=== PATIENT | female | born 1985 | race Caucasian/White ===

== ENCOUNTER 2021-01-29 12:27 | Emergency (ER) | payer MEDICAID, SELFPAY ==
--- NOTE | ~2021-01-29 | CT_ITS ---
EXAMINATION: CT ORBIT WITHOUT CONTRAST CLINICAL INFORMATION: Question left orbital cellulitis. COMPARISON: None TECHNIQUE: Multidetector helical imaging acquired in the axial plane with generation of reformatted acquisitions. This CT examination was performed using dose optimization techniques as appropriate, variously including the following: *Automated exposure control *Adjustment of mA and/or kV according to patient size (this includes techniques or standardized protocols for targeted exams where dose is matched to indication/reason for exam; i.e. extremities or head) *Use of iterative reconstruction technique DLP: 173 mGy-cm FINDINGS: There is moderate soft tissue thickening across the supraorbital frontal scalp and paranasal region and also visible in the left preseptal periorbital soft tissues. Mild soft tissue thickening and subcutaneous inflammatory changes noted in the premaxillary subcutaneous fat bilaterally. No obvious drainable fluid collection is evident on this limited noncontrast exam. No postseptal soft tissue inflammatory changes are visible. There is no proptosis. The globes, extraocular muscles, and optic nerve sheath complexes appear normal. The lacrimal glands are grossly normal in appearance bilaterally. No bony erosive changes are seen. Moderate sigmoidal-shaped nasal septal deviation noted. There are nasal bone fractures which are age-indeterminate. There is thickening of the right tympanic membrane which is abnormally retracted. The scutum is eroded. There is soft tissue thickening along the roof and nugent of the right external auditory canal. A rounded soft tissue lesion is visible within the attic of the right middle ear cavity extending posteriorly into the aditus ad antrum, measuring 9 mm AP and 5 mm TV. The incus is not visualized and is eroded. There is also significant thinning of the bony tegmen superiorly. CT/CT orbit BI wo con IMPRESSION: Soft tissue thickening across the supraorbital frontal scalp soft tissues, involving the paranasal soft tissues, the premaxillary subcutaneous fat bilaterally, and preseptal periorbital soft tissues on the left side, consistent with cellulitis. No postseptal soft tissue inflammatory changes in the orbits. No visible drainable fluid collection on this limited noncontrast study. Imaging findings most indicative for an atticoantral cholesteatoma on the right side with soft tissue thickening along the nugent of the right external auditory canal and retraction of the tympanic membrane. Areas of erosion involving the ossicular chain and scutum. Recommend ENT followup evaluation to guide further management. Imaging findings reported to MAXINE Casper at 3:25 PM on 01/29/2021.
[2021-01-29 12:47] VITALS: BP 136/70; PULSE 59; RESP 18; TEMP 37.1; O2SAT 97; BMI 21.7
[2021-01-29] MEDS: Acetaminophen 325 MG TABLET 650 MG PO (14:00)
--- NOTE | 2021-01-29 14:12 | ED_ITS ---
HPI - General Adult General Chief complaint: Eye Problems Stated complaint: Eye Problem Time Seen by Provider: 01/29/21 13:31 Source: patient Mode of arrival: ambulatory Limitations: no limitations History of Present Illness HPI narrative: Patient presents to ED for eye issue. Patient presents to the ED pimple and bridge of nose from between eyes and she pot, but now has mild drainage. States now that left upper eyelid and left lower eyelid are swollen and tenderness. Patient denies any eye globe pain. Patient denies any eye pain on movement. Patient denies any recent trauma to the eye. Related Data Previous Rx's Medication Instructions Recorded cephalexin 500 mg PO QID #28 cap 01/29/21 clindamycin HCl 300 mg PO TID #30 cap 01/29/21 Allergies Allergy/AdvReac Type Severity Reaction Status Date / Time dichloralphenazone Allergy Severe THROAT Unverified 06/27/20 15:48 [From MIDRIN] SWELLING NSAIDS (Non-Steroidal Allergy Severe TONGUE AND Unverified 06/27/20 15:48 Anti-Inflamma THROAT [NSAIDS (NON-STEROIDAL SWELLING ANTI-INFLAMMA] ibuprofen [IBUPROFEN] Allergy Intermediate RASH, Unverified 06/27/20 15:48 anaphylaxis amoxicillin [AMOXICILLIN] Allergy Unknown rash Unverified 06/27/20 15:48 From MIDRIN Allergy Severe THROAT Uncoded 06/27/20 15:48 SWELLING ANTI-INFLAMMATORY MEDS Allergy Unknown UNKNOWN Uncoded 06/27/20 15:48 Midrin Allergy Unknown anaphylaxis Uncoded 09/29/13 00:00 Review of Systems Review of Systems: Yes all other systems are reviewed and are negative Constitutional: Constitutional: Reports as per HPI and Reports no additional constitutional complaints Eyes: Eyes: Reports as per HPI and Reports no additional eye complaints Comments: Left upper and lower eyelid redness and swelling. ENT: Reports system reviewed and no additional complaints, except as documented and Reports as per HPI Cardiovascular: Cardiovascular: Reports as per HPI and Reports no additional cardiovascular complaints Respiratory: Respiratory: Reports as per HPI and Reports no additional respiratory complaints Gastrointestinal: Gastrointestinal: Reports as per HPI and Reports no additional gastrointestinal complaints Genitourinary: Genitourinary: Reports no additional female genitourinary complaints and Reports as per HPI Musculoskeletal: Musculoskeletal: Reports no additional musculoskeletal complaints and Reports as per HPI Neurologic: Reports system reviewed and no additional complaints, except as documented and Reports as per HPI Psychiatric: Psychiatric: Reports no additional psychiatric complaints and Reports as per HPI [facility] Past Medical History Medical History (Updated 01/29/21 @ 16:16 by MAXINE Ross) Asthma Bipolar 1 disorder Surgical History (Updated 01/29/21 @ 12:50 by Herminia Humphreys RN) History of tonsillectomy Social History Social History Advance Directives: Yes Advance Directives Information Provided: Yes Advance Directives on File: No Physical Exam Vital Signs: Vital Signs: Last Vital Signs Temp 98.7 F 01/29/21 12:47 Pulse 49 L 01/29/21 15:45 Resp 16 01/29/21 16:00 BP 140/69 H 01/29/21 15:45 Pulse Ox 98 01/29/21 15:45 Body Mass Index 21.7 Const: General: cooperative, healthy appearing, comfortable, no acute distress, well developed, alert and awake Orientation/consciousness: patient oriented x3 HENMT: Head: Yes normal to inspection, Yes No palpable skull fracture present, Yes normocephalic and Yes atraumatic Eyes: Other: Patient has complete range of motion of left eye muscles. Patient able to move her eyes and follow my finger of the left eye without having any pain. Physical exam does not indicate external ocular muscle entrapment. Negative for photophobia. Neck: Neck: Yes normal visual inspection, Yes full ROM, Yes no lymphadenopathy, Yes no meningeal signs, Yes trachea midline, Yes supple and No tender Chest: Chest palpation & inspection: normal inspection of the chest and normal palpation of entire chest wall Resp: Effort & Inspection: normal respiratory effort and able to speak in c omplete sentences Auscultation: clear to auscultation bilaterally Cardio: Jugular venous distension: no JVD Heart sounds: S1 normal heart sound present and S2 normal heart sound present GI: Inspection: Yes normal to inspection and No abdominal wall ecchymosis Palpation (GI): Soft to palpation, not firm, nontender, no guarding and not rigid : General: No CVA tenderness and Yes no CVA tenderness Back/Spine/Pelvis: Back: no CVA tenderness, No CVA tenderness and No back tenderness Skin: General skin exam: no rashes or lesions noted and elasticity normal Neuro: General: patient oriented x3 and no meningeal signs Cranial nerves: Yes CN's II-XII intact bilaterally Extrem: General: Yes normal to inspection and Yes full ROM Psych: Appearance: grossly normal, well kempt and not disheveled Course Course Course Narrative: History physical exam indicate preseptal cellulitis. Negative for any signs of ocular muscle entrapment. Patient discussed with , and he recommended CT scan of orbit without IV contrast to evaluate for orbital cellulitis due to history of IV drug abuse. Reevaluation(s) Reevaluation #1: Order CT scan negative for of the cellulitis, but shows ch olesteatoma. Patient was informed of cholesteatoma and told to follow-up with ENT. Patient informed that if facial cellulitis worsen she should come to the ED immediately. Patient prescribed antibiotics. Patient informed to return to ED in 2 days for re-evaluation. Medical Decision Making MDM Narrative Medical decision making narrative: preseptal cellulitis, Cholesteatoma Discharge Plan Discharge Clinical Impression: Periorbital cellulitis, Cholesteatoma of attic, right ear Patient Disposition: Home, Self-Care Instructions: Ear Infection (ED), Periorbital Cellulitis in Adults (ED) Additional Instructions: Return to the ED immediately for worsening swelling of eyelids, development of eye pain, inability to move the eye muscles, fever, chills, worsening ear pain, drainage from the ear, headache, dizziness, or any other concerning symptoms. Prescriptions: New clindamycin HCl 300 mg capsule 300 mg PO TID Qty: 30 RF: 0 cephalexin 500 mg capsule 500 mg PO QID Qty: 28 RF: 0 Referrals: Papa Anderson [Physician] - 2 days (Right Atticoantral choesteatoma as per ear ct scan) Interventions: ED Discharge Assessment Last Done: 01/29/21 16:27 Discharge Date/Time: 01/29/21 16:30 Print Language: Urdu
--- NOTE | 2021-01-29 14:16 | PC.NURSE ---
medicated for pain and w antibiotic, aware of care plan,
[2021-01-29 15:45] VITALS: BP 140/69; PULSE 49; RESP 16; O2SAT 98
[2021-01-29 16:00] VITALS: RESP 16
== END 2021-01-29 16:30 | disposition home or self-care (01) ==
PROVIDERS: Emergency Provider Emergency Medicine; PCP Pediatrics
DX: L03.213 Periorbital cellulitis (principal); H71.93 Unspecified cholesteatoma, bilateral; Z79.899 Other long term (current) drug therapy
CPT/HCPCS: 70480; 99284

== ENCOUNTER 2023-11-22 09:02 | Outpatient (REF) | payer MEDICAID, SELFPAY ==
[2023-11-22 11:31] LABS: MANUAL DIFF FLAG NO
[2023-11-22 12:23] LABS: Basophils Absolute Auto 0.1 X10*3/uL (0.0-0.2); Basophils Percent Auto 0.7 % (0-2); Eosinophils Absolute Auto 0.2 X10*3/uL (0.0-0.4); Eosinophils Percent Auto 2.3 % (0-4); Hematocrit 37.4 % (37.0-47.0); Hemoglobin 12.1 g/dl (12.0-16.0); Imm Gran Abs Auto 0.01 X10*3/uL (0.00-0.03); Imm Gran Pct Auto 0.1 % (0.0-0.4); Lymphocytes Absolute Auto 2.1 X10*3/uL (1.2-4.9); Lymphocytes Percent Auto 29.7 % (20-40); Mean Corpuscular HGB Conc 32.4 g/dl (31.0-35.0); Mean Corpuscular Hemoglobin 29.7 pg (27.0-33.0); Mean Corpuscular Volume 91.7 fL (80.0-98.0); Mean Platelet Volume 11.5 fL (9.4-12.3); Monocytes Absolute Auto 0.5 X10*3/uL (0.1-1.2); Monocytes Percent Auto 7.6 % (2-11); Neutrophils Absolute Auto 4.2 x10*3/uL (2.0-8.3); Neutrophils Percent Auto 59.6 % (45-73); Platelet Count 231 X10*3/uL (160-400); Red Blood Count 4.08 X10*6/uL (4.20-5.50); Red Cell Distribution Width 14.8 % (11.0-16.0)
[2023-11-22 12:49] LABS: Alanine Aminotransferase 57 U/L (0-31); Albumin Level 3.9 g/dL (3.5-5.0); Alkaline Phosphatase 90 U/L (39-117); Anion Gap 14 (12-20); Aspartate Amino Transferase 48 U/L (5-31); Bilirubin Direct 0.3 mg/dL (0.0-0.5); Bilirubin Total 0.6 mg/dL (0.0-1.0); Blood Urea Nitrogen 18 mg/dL (9-16); Calcium 9.2 mg/dL (8.4-10.2); Carbon Dioxide 25 mmol/L (22-29); Chloride 107 mmol/L (96-108); Estimated Glomerular Filt Rate > 60; Glucose Random 84 mg/dL (60-115); Sodium 142 mmol/L (135-145); TSH reflex Free T4 1.44 uIU/mL (0.32-4.0); Total Protein 7.2 g/dL (6.5-8.0); Vitamin D 25-OH Total 16.1 ng/mL (>30)
== END 2023-11-22 09:03 | disposition home or self-care (01) ==
LOC: HO.HHCL 09:02
PROVIDERS: Visit Provider Pediatrics
DX: F31.62 Bipolar disorder, current episode mixed, moderate (principal); R35.89 Other polyuria
CPT/HCPCS: 36415; 80048; 80076; 82306; 84443; 85025

== ENCOUNTER 2025-05-11 14:12 | Outpatient (REF) | payer MEDICAID, SELFPAY ==
--- OUTSIDE RECORDS SUMMARY | 2025-05-11 14:16 | XMS_ITS | Clinical Summary ---
Author Organization [facility] ity Address [address] [place] [address] Care Team Providers Care Make Up Man Name Role Phone Unavailable Primary Care Provider Unavailabl e Social History Tobacco Use Types Packs/Day Years Used Date Smoking Tobacco: Never Assessed Comments Unknown Sex and Gender Information Value Date Recorded Sex Assigned at Not on file Legal Sex Female 1:55 PM EST Gender Identity Not on file Sexual Orientation Not on file Plan of Treatment Health Maintenance Due Date Last Done Comments DTaP,Tdap,and Td Vaccines (1 - Tdap) 2005 Hepatitis B Vaccines (1 of 3 - 19+ 3-dose series) 2005 Cervical Cancer Screening: P ap Smear 12/14/2007 COVID-19 Vaccine ( - 2023-2 5 season) 2024 Depression Screening 10/11/2024 Influenza Vaccine (#1) 2025 HIB Vaccines Aged Out No longer eligi ble based on patient's age to complete this topic HPV Vaccines Aged Out No longer eligi ble based on patient's age to complete this topic Hepatitis A Vaccines Aged Out No long er eligible based on patient's age to complete this topic IPV Vaccines Aged Out No longer eligi ble based on patient's age to complete this topic MMR Vaccines Aged Out No longer eligi ble based on patient's age to complete this topic Meningococcal ACWY Vaccine Aged Out N o longer eligible based on patient's age to complete this topic Meningococcal B Vaccine Aged Out No l onger eligible based on patient's age to complete this topic Pneumococcal Vaccine: Pediat rics (0 to 5 Years) and At-Risk Patients (6 to 49 Years) Aged Out No longer eligible b ased on patient's age to complete this topic RSV Immunization Patients Un jonny 20 months Aged Out No longer eligible b ased on patient's age to complete this topic Varicella Vaccines Aged Out No longer eligible based on patient's age to complete this topic
--- OUTSIDE RECORDS SUMMARY | 2025-05-11 14:16 | XMS_ITS | Encounter Summary ---
Author Organization [facility] [facility] Address [address] [place] [address] Care Team Providers Care Radio Maintainer Name Role Phone Funmilayo Long MD Primary Care Provider [phone] Encounter Details Date Type Department Care Team (Late Contact Info) Description 02/23/2023 Abstract [facility] [address] [place] [address] Funmilayo Long MD [address], [place] [id number] Social History Tobacco Use Types Packs/Day Years Used Date Smoking Tobacco: Never Assessed Comments Unknown Sex and Gender Information Value Date Recorded Sex Assigned at Female 08/10/2022 10:15 AM EDT Legal Sex Female 10:15 AM EDT Gender Identity Female 08/10/2022 10:15 AM EDT Sexual Orientation Straight 08/10/2022 10 :15 AM EDT documented as of this encounter Plan of Treatment Upcoming Encounters Date Type Department Care Team (Late Contact Info) Description 05/31/2025 9:30 AM EDT Procedure Visit [facility] [address] [place] [address] Maricarmen Bustillos CNM [address] [place] [address] documented as of this encounter Visit Diagnoses Not on filedocumented in this encounter Care Teams Radio Maintainer Relationship Specialty Start Date End Date Funmilayo Long MD [address] [place] [address] PCP - General Family Medicine 10/11/18 documented as of this encounter
[2025-05-12 03:33] LABS: Syphilis Screen Nonreactive (Nonreactive)
[2025-05-12 03:40] LABS: HIV Num 1 0.07 S/CO (0.00-0.99); ~HepC Num1 14.52 S/CO (0.00-0.79); ~Hepatitis C Antibody Reactive (Nonreactive)
[2025-05-12 04:56] LABS: CT PCR NOT DETECTED (Not Detect.); NG PCR NOT DETECTED (Not Detect.)
[2025-05-15 15:38] LABS: HCV Log PCR 6.82 Log IU/mL (NOT DETECTED); HepC Viral Load 6560000 IU/mL (NOT DETECTED)
== END 2025-05-11 14:13 | disposition home or self-care (01) ==
LOC: HO.HHCL 14:12
PROVIDERS: PCP Pediatrics; Visit Provider Nurse Practitioner
DX: Z11.3 Encounter for screening for infections with a predominantly sexual mode of transmission (principal); Z11.4 Encounter for screening for human immunodeficiency virus [HIV]; Z11.59 Encounter for screening for other viral diseases
CPT/HCPCS: 36415; 86780; 86803; 87389; 87491; 87522; 87591

== ENCOUNTER 2025-05-18 09:44 | Outpatient (REF) | payer MEDICAID, SELFPAY ==
--- OUTSIDE RECORDS SUMMARY | 2025-05-18 09:47 | XMS_ITS | Clinical Summary ---
Author Organization [facility] ity Address [address] [place] [address] Care Team Providers Care Office Director Name Role Phone Unavailable Primary Care Provider [...]
--- OUTSIDE RECORDS SUMMARY | 2025-05-18 09:47 | XMS_ITS | Encounter Summary ---
Author Organization [employer] [facility] Address [address] [place] [address] Care Team Providers Care Tag Press Operator Name Role Phone Funmilayo Long MD Primary Care Provider [phone] Encounter Details Date Type Department Care Team (Late Contact Info) Description 02/23/2023 Abstract [facility] [address] [place] [address] Funmilayo Long MD [address] [place], [place] [phone] Social History Tobacco Use Types Packs/Day Years [...] Description 05/31/2025 9:30 AM EDT Procedure Visit [facility] [address] [place] [address] Maricarmen Bustillos CNM [address] [place] [address] documented as of this encounter Visit Diagnoses Not on filedocumented in this encounter Care Teams Tag Press Operator Relationship Specialty Start Date End Date Funmilayo Long MD [address] [place] [address] PCP - General Family Medicine 10/11/18 documented as of this encounter
[2025-05-18 11:43] LABS: MANUAL DIFF FLAG NO
[2025-05-18 11:52] LABS: Hematocrit 40.1 % (37.0-47.0); Hemoglobin 13.3 g/dl (12.0-16.0); Imm Gran Abs Auto 0.02 X10*3/uL (0.00-0.03); Imm Gran Pct Auto 0.3 % (0.0-0.4); Lymphocytes Absolute Auto 2.0 X10*3/uL (1.2-4.9); Mean Corpuscular HGB Conc 33.2 g/dl (31.0-35.0); Mean Corpuscular Hemoglobin 30.2 pg (27.0-33.0); Mean Corpuscular Volume 91.1 fL (80.0-98.0); NRBC Abs Auto 0.000 X10*3/uL (0.0-0.012); NRBC Pct Auto 0.0 /100WBC (0.0-0.2); Platelet Count 259 X10*3/uL (160-400); Red Blood Count 4.40 X10*6/uL (4.20-5.50); White Blood Count 7.9 X10*3/uL (4.8-10.8)
[2025-05-18 11:53] LABS: INTERNATIONAL NORM RATIO 1.0 (0.9-1.1); Prothrombin Time 11.3 SEC (10.9-12.4)
[2025-05-18 12:01] LABS: Alanine Aminotransferase 91 U/L (0-31); Albumin Level 4.3 g/dL (3.5-5.0); Alkaline Phosphatase 104 U/L (39-117); Aspartate Amino Transferase 76 U/L (5-31); Estimated Glomerular Filt Rate > 60; Total Protein 7.7 g/dL (6.5-8.0)
[2025-05-18 12:32] LABS: HBS Num1 32.89 mIU/mL (0-7.99); HBc Num1 0.09 S/CO (0.00-0.79); HBsAGNum1 0.33 S/CO (0.00-0.99); Hepatitis B Surface Antigen Negative (Negative); ~Hepatitis A Antibody IgG 0.92 S/CO (0.00-0.99); ~Hepatitis B Surface Antibody REACTIVE (Nonreactive)
[2025-05-23 00:33] LABS: FIB-ALT 66 U/L (6-29); FIB-Alpha-2-Macroglobulin 257 mg/dL (106-279); FIB-Apolipoprotein A1 181 mg/dL (101-198); FIB-GGT 20 U/L (3-50); FIB-Haptoglobin 131 mg/dL (43-212); FIB-Total Bilirubin 0.3 mg/dL (0.2-1.2); Liver Fibrosis Score 0.09; Liver Fibrosis Stage F0; Nec Inflam Act Grade A1; Nec Inflam Act Score 0.32
== END 2025-05-18 09:45 | disposition home or self-care (01) ==
LOC: HO.HHCL 09:44
PROVIDERS: PCP Pediatrics; Visit Provider Pediatrics
DX: B19.20 Unspecified viral hepatitis C without hepatic coma (principal)
CPT/HCPCS: 36415; 80076; 81596; 82565; 85025; 85610; 86704; 86706; 86708; 87340; 87902